=== PATIENT | female | born 1945 | race Caucasian/White ===

== ENCOUNTER → 2022-05-25 | Outpatient (CLI) | payer SELFPAY ==
--- NOTE | 2022-05-25 08:16 | CT_ITS ---
STUDY: CT CHEST WITHOUT CONTRAST REASON FOR EXAM: Female, 77 years old. Lung Nodule. RADIATION DOSAGE (If Supplied By Facility): Noncalcified nodules also seen in the anterior aspect of the right middle lobe as seen on axial image #63. = ( 6.21 ) mGy, DLP = ( 210.89 ) mGycm TECHNIQUE: Transaxial imaging was performed without the administration of intravenous contrast material. Multiplanar coronal and sagittal images were reformatted. Individualized dose optimization techniques were used for this CT. COMPARISON: No relevant priors. FINDINGS: CHEST There is a 1.3 cm x 0.8 cm nodule in the left upper lobe as seen on axial image #67. Increased markings are seen laterally as well as posteriorly with evidence of bronchiectasis. There is also evidence of bronchiectasis with scarring in the posterior aspect of the right middle lobe abutting the right major fissure. There is a 3 mm noncalcified nodule in the anterior medial aspect of the right lower lobe abutting the fissure as seen on axial image #79. There are 2 adjacent pleural-based nodules in the left lower lobe as seen on axial image #97. The larger measures 1.5 sinus by 1.4 cm. There is also evidence of a noncalcified pleural-based nodule in the lateral aspect of the right lower lobe as seen on axial image #97. This measures 5.5 mm. A 2 mm There is no demonstrated pleural abnormality. There are calcifications of the coronary arteries. There are multiple small lymph nodes within the mediastinum, which are normal in size and morphology most compatible with reactive lymph hyperplasia. Normal hilar regions. Normal unenhanced pulmonary arteries. There is atherosclerotic calcification of the aortic arch. There are multi-level degenerative changes of the thoracic spine. There is no demonstrated abnormality of the visualized upper abdomen. CT/Chest without Contrast IMPRESSION: Bilateral pulmonary nodules as described. Localized areas of scarring and bronchiectasis. Repeat examination in 3 months is recommended. Electronically Signed: Dane Cornelius MD at 13:42 EDT ,
== END | disposition home or self-care (01) ==
LOC: CT 08:09
PROVIDERS: PCP Physician Assistant; Referring Provider Internal Medicine Critical Care Medicine; Visit Provider Internal Medicine Critical Care Medicine
DX: R91.1 Solitary pulmonary nodule (principal)
CPT/HCPCS: 71250

== ENCOUNTER → 2022-06-23 | Outpatient (CLI) | payer SELFPAY ==
--- NOTE | 2022-06-23 08:30 | PET_ITS ---
EXAMINATION: FDG PET/CT INDICATIONS: 77-year-old female with a history of pulmonary nodularity, presenting for restaging examination. COMPARISON EXAMINATION: CT of the chest report dated 05/25/2022 INDEX LESION SIZE SUV INTERPRETATION Bilateral hemithorax pulmonary parenchyma ? 1.6 max Quantitative criteria for viable neoplasm not fulfilled, sequential radiologic investigation recommended ? NON-INDEX LESION ? ? ? Bilateral thoracic perihilum ? 2.9 max Quantitative criteria for viable neoplasm ? Left lateral chest wall-9th rib ? ? Most consistent with trauma-fracture, correlation with plain film radiography may be of benefit TECHNIQUE: Following the intravenous administration of 14.03 mCi of F-18 deoxyglucose via the left antecubital fossa, multiplanar image acquisitions of the head, neck, chest, abdomen and pelvis to the level of the midthigh, obtained at one-hour post radiopharmaceutical administration contemporaneously interpreted with the current CT of the chest, abdomen and pelvis dated 06/23/[address] study dated 05/25/2022 via coregistration reveal: SERUM GLUCOSE LEVEL: 121 mg/dL HEIGHT: 61 inches WEIGHT: 114 pounds FINDINGS: HEAD/NECK: There is no evidence of abnormal increased glucose metabolism in the pharyngeal mucosal space, parapharyngeal space, oropharynx, bilateral-lateral and anterior neck, hypopharynx and distribution of the larynx. The visualized portion of the cerebral cortical-subcortical structures demonstrate symmetric and preserved glucose metabolism. CHEST: Facilitated FDG uptake is noted in the bilateral lower anterior lung dhillon. The calculated standard uptake value is 1.6. Facilitated FDG concentration is manifest in the bilateral thoracic perihilum with a calculated standard uptake value of 2.9. Quantitative criteria for viable neoplasm are not fulfilled. CT of the chest demonstrates the following anatomic characteristics: Atherosclerotic calcification is defined in the thoracic aorta without evidence of dilatation, aneurysm formation. Mild coronary artery calcification is observed. Bilateral axillary soft tissue densities are nonglucose avid. Soft tissue densities defined in the bilateral axillary region are nonglucose avid. Additional parenchymal densities noted in the bilateral hemithorax are nonglucose avid. ABDOMEN/PELVIS: Normal physiologic distribution of the radiopharmaceutical is identified in the hepatic (3.3) and splenic parenchyma, both renal units, urinary bladder, and visualized intestinal tract. Diffuse intestinal tract is identified in all four quadrants of the abdominal-pelvic mesentery. CT of the abdomen and pelvis is remarkable for the following: Evidence of cholelithiasis is defined. Atherosclerotic calcification is defined in the abdominal aorta without evidence of dilatation, aneurysm formation. Pelvic arterial calcification is observed. The bilateral kidneys demonstrate prominent collecting system activity at the level of the renal pelvis. Calcification is noted within the apparent retained uterus. Bilateral inguinal soft tissue densities are ametabolic. SKELETAL: Increased radiopharmaceutical concentration is defined in the left lateral chest wall-9th rib most consistent with trauma-fracture. PET/PET/CT Tumor Base -Thigh Init IMPRESSION: 1. NEGATIVE EXAMINATION. There is no definitive quantitative scintigraphic evidence of viable neoplasm. 2. Enhanced tracer uptake noted in the bilateral lung dhillon, both nodular and nonnodular in presentation, does not fulfill quantitative criteria for viable neoplasm. 3. The bilateral thoracic perihilar hypermetabolic foci do not fulfill quantitative criteria for malignant transformation. 4. Increased uptake described in the left lateral chest wall-9th rib most likely represents trauma-fracture. Electronic Signature Jaime Lomax D.O. Accurate Quantification of SUVs for this report are calculated using the exclusive [email or web address]. ([place] Patent No. [id number] B2 [phone] [place] patent [phone]). Standardization and correction of the FDG SUV metric via [employer] technology allow for vendor non-specific objective quantitative examination comparison and optimization of the sensitivity and specificity of the FDG PET-CT examination. Electronically Signed: Jaime Lomax, at 8:46 EDT ,
== END | disposition home or self-care (01) ==
PROVIDERS: PCP Physician Assistant; Referring Provider Internal Medicine Critical Care Medicine; Visit Provider Internal Medicine Critical Care Medicine
DX: R91.1 Solitary pulmonary nodule (principal)
CPT/HCPCS: 78815; A9552

== ENCOUNTER → 2022-12-18 | Outpatient (CLI) | payer SELFPAY | END | disposition home or self-care (01) | LOC: LABSPEC 15:29 | PROVIDERS: PCP Physician Assistant; Referring Provider Otolaryngology; Visit Provider Otolaryngology | DX: J40 Bronchitis, not specified as acute or chronic (principal) | CPT/HCPCS: 87070; 87205 ==